=== PATIENT | male | born 1945 | race Caucasian/White ===

== ENCOUNTER 2018-10-06 00:07 | Emergency (ER) | payer OTHER, BC ==
[2018-10-06] MEDS ORDERED: OXYMETAZOLINE 0.05% NASAL SOLUTION 15 ML BOTTLE NS ONE (00:11)
[2018-10-06] MEDS ORDERED: OXYMETAZOLINE 0.05% NASAL SOLUTION 15 ML BOTTLE NS PRN (00:12)
[2018-10-06 00:23] VITALS: BP 172/102; PULSE 80; TEMP 97.8; BMI 33.6
--- NOTE | 2018-10-06 00:23 | PDOC ---
History of Present Illness - General Chief Complaint: Cold Symptoms Stated Complaint: NASAL CONGESTION Time Seen by Provider: 10/06/18 00:12 History Source: Patient Exam Limitations: No Limitations - History of Present Illness Initial Comments: 10/06/18 03:01 nasal congestion no relief with sudafed or amoxicillin Timing/Duration: other (3 days) Severity: moderate Modifying Factors: worse with: medication Associated Symptoms: denies: cough, fever/chills, rash Past History - Past Medical History Allergies/Adverse Reactions: Allergies Allergy/AdvReac Type Severity Reaction Status Date / Time No Known Allergies Allergy Verified 10/06/18 00:09 Home Medications: Ambulatory Orders Nebivolol HCl [Bystolic] 1 tab PO DAILY 06/05/17 Rosuvastatin Calcium [Crestor] 1 tab PO DAILY 06/05/17 Losartan 50Mg/Hctz 12.5MG 10/06/18 HTN: Yes Hypercholesterolemia: Yes - Suicide/Smoking/Psychosocial Hx Smoking History: Current every day smoker Have you smoked in the past 12 months: Yes Cigars Per Day: 1 Review of Systems - Review of Systems All Other Systems: Reviewed and Negative *Physical Exam - Physical Exam General Appearance: Yes: Nourished, Appropriately Dressed HEENT: positive: Nasal Congestion, Rhinorrhea. negative: Pharyngeal Erythema Neck: negative: Lymphadenopathy (R), Lymphadenopathy (L) Respiratory/Chest: positive: Lungs Clear Cardiovascular: positive: Regular Rhythm Medical Decision Making - Medical Decision Making 10/06/18 03:02 nasal congestion uri trial of afrin (use no longer than 36 hours) *DC/Admit/Observation/Transfer Diagnosis at time of Disposition: Nasal congestion - Discharge Dispostion Disposition: HOME Condition at time of disposition: Stable - Referrals Referrals: Keanu Martínez MD [Primary Care Provider] - - Patient Instructions Printed Discharge Instructions: DI for Viral Upper Respiratory Infection -- Adult - Post Discharge Activity
== END 2018-10-06 00:23 | disposition home or self-care (01) ==
LOC: FER 00:07
DX: R09.81 Nasal congestion (principal); I10 Essential (primary) hypertension; E78.00 Pure hypercholesterolemia, unspecified; F17.210 Nicotine dependence, cigarettes, uncomplicated
CPT/HCPCS: 99281-25